=== PATIENT | female | born 1960 | race Asian ===

== ENCOUNTER 2021-04-29 08:09 | Emergency (ER) | payer OTHER ==
[2021-04-29 10:35] LABS: CORONAVIRUS COVID-19 NAA POSITIVE (NEGATIVE)
--- NOTE | 2021-04-29 11:08 | EDM.PDOC ---
ED HPI GENERAL MEDICAL PROBLEM - General Chief Complaint: Respiratory Problem Stated Complaint: COUGH HEADACHE Time Seen by Provider: 04/29/21 09:00 - History of Present Illness INITIAL COMMENTS - FREE TEXT/NARRATIVE: Patient is 60-year-old female presenting to the emergency room with a chief complaint of cough, weakness x2 months. Patient is present with daughter who provides majority of history as patient does not speak [place] is her primary language. According to patient's daughter, this has not been getting any better. She has several contacts in the household that have similar symptoms including the daughter and grandchildren. Symptoms are primarily cough productive of greenish sputum along with sore throat and significant fatigue. There is not been any issues with loss of appetite, diarrhea, vomiting. Patient denies any chest pain or shortness of breath. Patient did receive the Covid vaccine with the second vaccination being done in September. Upper Epigastric Pain Score (Numeric/FACES): 8 - Related Data Allergies Allergy/AdvReac Type Severity Reaction Status Date / Time No Known Allergies Allergy Verified 04/29/21 08:24 Home Meds: Home Meds . [No Known Home Meds] 04/29/21 [History] Past Medical History Cardiovascular History: Reports: High Cholesterol, Other (See Below) Other Cardiovascular History: diet controlled. 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: Neurological History: Reports: Headaches, Chronic Social & Family History - Tobacco Use Tobacco Use Status *Q: Never Tobacco User Second Hand Smoke Exposure: No - Caffeine Use Caffeine Use: Reports: None - Recreational Drug Use Recreational Drug Use: No ED ROS GENERAL - Review of Systems Review Of Systems: See Below Free Text/Narrative/Comment: In addition to that documented in the HPI above, the additional ROS was ob tained: Constitutional: Denies fevers or chills Eyes: Denies vision changes ENMT: Per HPI CV: Denies chest pain Resp: Denies SOB GI: Denies vomiting or diarrhea : Denies painful urination MSK: Denies recent trauma Skin: Denies new rashes Neuro: Denies new numbness or tingling or weakness Endocrine: Denies unexpected weight loss Heme: Denies bleeding disorders ED EXAM, GENERAL - Physical Exam Exam: See Below Free Text/Narrative:: I have reviewed the triage vital signs Const: Well nourished, well developed, appears stated age Eyes: Pupils Equal and reactive to light bilaterally, no conjunctival injection HENT: No signs of trauma or swelling, Neck supple without meningismus CV: Regular Rate Rhythm, Warm, well-perfused extremities RESP: Unlabored respiratory effort GI: soft, non-tender, non-distended, no masses MSK: No gross deformities appreciated Skin: Warm, dry. No rashes Neuro: Alert, electrolysis needle operator II-XII grossly intact. Sensation and motor function of extremities grossly intact. Psych: Appropriate mood and affect. Course - Vital Signs Last Recorded V/S: Last Vital Signs Temp 36.6 C 04/29/21 08:20 Pulse 85 04/29/21 08:20 Resp 16 04/29/21 08:20 BP 139/81 04/29/21 08:20 Pulse Ox 92 L 04/29/21 08:20 - Orders/Labs/Meds Orders: Active Orders 24 hr Category Date Time Status Chest 1V Frontal [CR] Stat Exams 04/29/21 09:01 Taken PROCALCITONIN [REF] Stat Lab 04/29/21 09:01 Ordered Isolation [COMM] Routine Oth 04/29/21 10:38 Ordered Isolation [COMM] Routine Oth 04/29/21 10:38 Ordered Labs: Laboratory Tests 04/29/21 04/29/21 04/29/21 Range/Units 08:20 09:01 09:25 WBC 12.05 H (3.98-10.04) K/mm3 RBC 4.60 (3.98-5.22) M/mm3 Hgb 13.6 (11.2-15.7) gm/dl Hct 41.3 (34.1-44.9) % MCV 89.8 (79.4-94.8) fl MCH 29.6 (25.6-32.2) pg MCHC 32.9 (32.2-35.5) g/dl RDW Std Deviation 43.1 (36.4-46.3) fL Plt Count 285 (182-369) K/mm3 MPV 9.4 (9.4-12.3) fl Neut % (Auto) 67.6 (34.0-71.1) % Lymph % (Auto) 21.1 (19.3-51.7) % Stanley % (Auto) 9.0 (4.7-12.5) % Eos % (Auto) 1.7 (0.7-5.8) Baso % (Auto) 0.4 (0.1-1.2) % Neut # (Auto) 8.14 H (1.56-6.13) K/mm3 Lymph # (Auto) 2.54 (1.18-3.74) K/mm3 Stanley # (Auto) 1.09 H (0.24-0.36) K/mm3 Eos # (Auto) 0.20 (0.04-0.36) K/mm3 Baso # (Auto) 0.05 (0.01-0.08) K/mm3 Manual Slide Review Abnormal smear Sodium 136 (136-145) mEq/L Potassium 3.8 (3.5-5.1) mEq/L Chloride 99 (98-107) mEq/L Carbon Dioxide 29 (21-32) mEq/L Anion Gap 11.8 (5-15) BUN 13 (7-18) mg/dL Creatinine 0.7 (0.55-1.02) mg/dL Est Cr Clr Drug Dosing 62.88 mL/min Estimated GFR (MDRD) > 60 (>60) mL/min BUN/Creatinine Ratio 18.6 H (14-18) Glucose 103 H (70-99) mg/dL Calcium 9.0 (8.5-10.1) mg/dL Total Bilirubin 1.2 H (0.2-1.0) mg/dL AST 27 (15-37) U/L ALT 44 (14-59) U/L Alkaline Phosphatase 72 (46-116) U/L Troponin I < 0.017 (0.00-0.056) ng/mL Total Protein 8.5 H (6.4-8.2) g/dl Albumin 3.6 (3.4-5.0) g/dl Globulin 4.9 gm/dL Albumin/Globulin Ratio 0.7 L (1-2) Influenza Type A RNA Negative (NEGATIVE) Influenza Type B RNA Negative (NEGATIVE) SARS-CoV-2 RNA (SAMANTHA) Positive H (NEGATIVE) Departure - Departure Time of Disposition: 11:07 Disposition: Home, Self-Care 01 Clinical Impression: Pneumonia due to COVID-19 virus - Discharge Information Instructions: COVID-19 Frequently Asked Questions Referrals: PCP,None [Primary Care Provider] - Forms: ED Department Discharge Sepsis Event Note (ED) - Evaluation Sepsis Screening Result: No Definite Risk - Focused Exam Vital Signs: Vital Signs Temp Pulse Resp BP Pulse Ox 04/29/21 08:20 36.6 C 85 16 139/81 92 L - My Orders Last 24 Hours: My Active Orders 04/29/21 09:01 Chest 1V Frontal [CR] Stat PROCALCITONIN [REF] Stat 04/29/21 10:38 Isolation [COMM] Routine Isolation [COMM] Routine - Assessment/Plan Last 24 Hours: My Active Orders 04/29/21 09:01 Chest 1V Frontal [CR] Stat PROCALCITONIN [REF] Stat 04/29/21 10:38 Isolation [COMM] Routine Isolation [COMM] Routine Assessment:: Patient 60-year-old female presented to the emergency room with upper respiratory symptoms. Patient did test positive for Covid in the emergency room. Patient not in respiratory distress or hypoxic. Patient generally well- appearing. Laboratory studies reviewed without significant abnormality. Likely etiology of patient's fatigue and cough is secondary to Covid. Medication further treatment at this time given patient's duration of symptoms. Patient be discharged with outpatient follow-up. Return precautions discussed as usual. Patient and daughter agree with plan of care.
--- NOTE | 2021-04-29 14:43 | CR ---
Chest: Portable view of the chest was obtained. Comparison: No prior chest imaging is available. Heart size and mediastinum are within normal limits. Lungs are clear with no acute parenchymal change. No acute osseous finding is seen. Impression: 1. Nothing acute is seen on portable chest x-ray. Diagnostic code #1
== END 2021-04-29 11:55 | disposition home or self-care (01) ==
LOC: JD.ED 08:09
DX: U07.1 COVID-19 (principal); J12.82 Pneumonia due to coronavirus disease 2019
CPT/HCPCS: 0240U; 36415; 71045; 80053; 84145; 84484; 85025; 87634; 99284